=== PATIENT | male | born 1985 | race Caucasian/White ===

== ENCOUNTER 2017-08-06 00:53 | Emergency (ER) | payer MEDICAID ==
[~2017-08-06 00:53] MED LIST: METH500T PO
== END 2017-08-06 01:45 | disposition left against medical advice (07) ==
LOC: ER 00:53
DX: R10.9 Unspecified abdominal pain (principal); Z53.21 Procedure and treatment not carried out due to patient leaving prior to being seen by health care provider

== ENCOUNTER 2020-01-31 04:13 | Emergency (ER) | payer MEDICAID, OTHER ==
[~2020-01-31] VITALS: Ht 182.9 cm; Wt 85.0 kg
[2020-01-31 05:00] LABS: BASOPHILS # (AUTO) 0.1 X10'3 (0-0.2); BASOPHILS % (AUTO) 0.7 % (0-1); EOSINOPHILS # (AUTO) 0.1 X10'3 (0-0.9); EOSINOPHILS % (AUTO) 1.2 % (0-6); HEMOGLOBIN 10.2 g/dl (14.0-17.9); LYMPHOCYTES # (AUTO) 1.2 X10'3 (1.1-4.8); LYMPHOCYTES % (AUTO) 14.5 % (21-51); MEAN CORPUSCULAR HEMOGLOBIN 28.2 PG (27.0-31.0); MEAN CORPUSCULAR HGB CONC 32.8 g/dL (33.0-36.5); MEAN PLATELET VOLUME 6.6 FL (7.4-10.4); MONOCYTES % (AUTO) 12.3 % (2-12); NEUTROPHILS # (AUTO) 5.8 X10'3 (1.8-7.7); NEUTROPHILS % (AUTO) 71.3 % (42-75); PLATELET COUNT 559 X10'3 (140-440); RED BLOOD COUNT 3.61 X10'6 (4.70-6.10); RED CELL DISTRIBUTION WIDTH 15.5 % (11.5-14.5); WHITE BLOOD COUNT 8.1 X10'3 (4.5-11.0)
[2020-01-31 05:03] LABS: H PYLORI ANTIBODY NEGATIVE (Neg)
[2020-01-31 05:04] LABS: D-DIMER 1.73 MG/L FEU (0-0.50); PARTIAL THROMBOPLASTIN TIME 26 SECONDS (22-32)
[2020-01-31 05:07] LABS: ALANINE AMINOTRANSFERASE 30 U/L (12-78); ALBUMIN 2.8 G/DL (3.4-5.0); ALBUMIN/GLOBULIN RATIO 0.9 (1.1-1.5); ALKALINE PHOSPHATASE 45 IU/L (46-116); ANION GAP 4 (8-16); ASPARTATE AMINO TRANSFERASE 16 U/L (10-37); BILIRUBIN,TOTAL 0.1 MG/DL (0.1-1.0); BLOOD UREA NITROGEN 11 MG/DL (7-18); BUN/CREATININE RATIO 10.9 (5.4-32.0); CALCIUM 7.7 MG/DL (8.5-10.1); CHLORIDE 108 MMOL/L (99-107); CREATININE 1.01 MG/DL (0.60-1.10); GLUCOSE 115 MG/DL (70-104); LIPASE 377 U/L (73-393); POTASSIUM 3.1 MMOL/L (3.5-5.1); SODIUM 141 MMOL/L (135-145); TOTAL PROTEIN 5.8 G/DL (6.4-8.2); eGFR 84 ML/MIN
[2020-01-31] MEDS ORDERED: potassium Cl 20 mEq SR tablet PO ONE (05:15)
[2020-01-31] MEDS ORDERED: iohexol 350MG/ML 100ml bottle IV ONE (05:32)
[2020-01-31 05:56] VITALS: BP 137/89
== END 2020-01-31 06:00 | disposition left against medical advice (07) ==
LOC: ER 04:13
DX: R07.89 Other chest pain (principal); R10.12 Left upper quadrant pain; Z79.899 Other long term (current) drug therapy
CPT/HCPCS: 36415; 71045; 80053; 83690; 85025; 85379; 85610; 85730; 86677; 93005; 99285; Q9967